=== PATIENT | female | born 1975 | race Caucasian/White ===

== ENCOUNTER 2016-12-23 23:05 | Emergency (ER) | payer BC, OTHER ==
[~2016-12-23 23:05] MED LIST: CIPR500T2 PO; ESTR1TAB PO; METR250 PO; OXYC1SOL5 PO; PRED20 PO; PROG100C PO; PROM25SU8 PO
[2016-12-23 23:07] VITALS: BP 166/99; TEMP 97.8; O2SAT 96
[2016-12-24 00:38] VITALS: BP 145/75; PULSE 111; RESP 20; TEMP 98; O2SAT 95
[2016-12-24] MEDS ORDERED: ESTR1TAB PO (01:16)
[2016-12-24] MEDS ORDERED: MULTTAB67 PO (01:16)
[2016-12-24] MEDS ORDERED: SODIUM CHLOR 0.9% 1000 ML INJ 1,000 ML IV SCH (01:17)
[2016-12-24] MEDS ORDERED: HYDROmorphone HCL PF 1 MG/ML VIAL IVS ONE (01:30)
[2016-12-24] MEDS ORDERED: SODIUM CHLOR 0.9% 250 ML INJ 250 ML IV ONE (01:30)
[2016-12-24] MEDS ORDERED: ONDANSETRON HCL 4 MG/2 ML VIAL IVP ONE (01:30)
[2016-12-24] MEDS ORDERED: SODIUM CHLORIDE 0.9% FLUSH 10 ML FLUSH IV FLUSH PRN (01:30)
[2016-12-24] MEDS ORDERED: IOHEXOL 350 MG/ML 10 ML VIAL (for RAD DIAG) IV ONE (01:58)
--- NOTE | 2016-12-24 02:18 | RADRPT ---
EXAM DATE/TIME: 12/24/2016 01:49 [facility] COMPARISON: CT ABDOMEN & PELVIS W CONTRAST, November 10, 2013, 1:20. INDICATIONS : Lower abdominal pain with nausea, vomiting and bloody diarrhea. IV CONTRAST: 90 cc Omnipaque 350 (iohexol) IV ORAL CONTRAST: No oral contrast ingested. RADIATION DOSE: 25.3 CTDIvol (mGy) MEDICAL HISTORY : Ulcerative colitis. Ovarian cancer. Mesenteric sclerosis. SURGICAL HISTORY : Appendectomy. Cholecystectomy.Hysterectomy. ENCOUNTER: Initial ACUITY: 2 days PAIN SCALE: 6/10 LOCATION: Bilateral lower quadrant TECHNIQUE: Volumetric scanning of the abdomen and pelvis was performed. Using automated exposure control and ad justment of the mA and/or kV according to patient size, radiation dose was kept as low as reasonably achievable to obtain optimal diagnostic quality images. FINDINGS: LOWER LUNGS: The visualized lower lungs are clear. LIVER: Homogeneous density without lesion. There is no dilation of the biliary tree previous cholecystectom y. SPLEEN: Normal size without lesion. PANCREAS: Within normal limits. KIDNEYS: Normal in size and shape. There is no mass, stone or hydronephrosis. ADRENAL GLANDS: Within normal limits. VASCULAR: There is no aortic aneurysm. BOWEL/MESENTERY: The stomach, small bowel, and colon demonstrate no acute abnormality. There is no free intraperitone al air or fluid. Anastomotic sutures within the small bowel. ABDOMINAL WALL: Within normal limits. RETROPERITONEUM: There is no lymphadenopathy. BLADDER: No wall thickening or mass. REPRODUCTIVE: Within normal limits. INGUINAL: There is no lymphadenopathy or hernia. MUSCULOSKELETAL: Within normal limits for patient age. CONCLUSION: 1. No acute inflammatory process. 2. Status post cholecystectomy. Everett Del Toro MD on December 24, 2016 at 2:13 Board Certified Radiologist. This report was verified electronically.
[2016-12-24 02:27] LABS: AUTOMATED NEUTROPHIL # 6.3 TH/MM3 (1.8-7.7); BASOPHIL # 0.1 TH/MM3 (0-0.2); BASOPHIL % 1.3 % (0.0-2.0); EOSINOPHIL # 0.3 TH/MM3 (0-0.4); EOSINOPHIL % 2.5 % (0.0-4.0); HEMATOCRIT 38.2 % (35.0-46.0); HEMO FLAGS DIFF FINAL; LYMPH % 32.5 % (9.0-44.0); LYMPHOCYTE # 3.7 TH/MM3 (1.0-4.8); MEAN CORPUSCULAR HEMOGLOBIN 30.2 PG (27.0-34.0); MEAN CORPUSCULAR HGB CONC 34.3 % (32.0-36.0); MONO % 7.9 % (0.0-8.0); NEUT % 55.8 % (16.0-70.0); PLATELET COUNT 302 TH/MM3 (150-450); RED BLOOD COUNT 4.35 MIL/MM3 (4.00-5.30); RED CELL DISTRIBUTION WIDTH 13.2 % (11.6-17.2); WHITE BLOOD COUNT 11.2 TH/MM3 (4.0-11.0)
[2016-12-24 02:43] LABS: ALKALINE PHOSPHATASE 90 U/L (45-117); ALT (GPT) 33 U/L (10-53); ANION GAP 11 MEQ/L (5-15); AST (GOT) 25 U/L (15-37); BICARBONATE 24.9 MEQ/L (21.0-32.0); BLOOD UREA NITROGEN 16 MG/DL (7-18); CHLORIDE 106 MEQ/L (98-107); GLOMERULAR FILTRATION RATE 104 ML/MIN (>89); SODIUM (NA) 142 MEQ/L (136-145); TOTAL BILIRUBIN ADULT 0.2 MG/DL (0.2-1.0)
[2016-12-24 02:44] LABS: POTASSIUM 3.7 MEQ/L (3.5-5.1)
[2016-12-24] MEDS ORDERED: HYDROmorphone HCL PF 1 MG/ML VIAL IV PUSH ONE ×2 (03:00→04:15)
[2016-12-24] MEDS ORDERED: PROM25TA5 PO (03:23)
[2016-12-24] MEDS ORDERED: HYDR-3533 PO (03:23)
--- NOTE | 2016-12-24 03:25 | PD ---
HPI Chief Complaint: Abdominal Pain Time Seen by Provider: 00:39 Travel History International Travel<30 days: No Contact w/Intl Traveler<30days: No Traveled to known affect area: No History of Present Illness HPI 41-year-old female arrives complaining of nausea vomiting and bloody stool. Duration about 2 days. She reports initially bright red blood with stool filling the toilet bowl. More recently she's noticed trace blood in the stool. She's had no fever. She has pain in the region of the left lower quadrant of the abdomen. Appetite has been decreased. No VB/VD. No Urinary complaint. PFSH Past Medical History Arthritis: No Asthma: No Autoimmune Disease: No Blood Disorders: No Anxiety: Yes Depression: Yes (SISTER AND NEPHEW KILLED BY [id number] PER PT) Heart Rhythm Problems: No Cancer: Yes (OVARIAN ) Cardiovascular Problems: No High Cholesterol: No Chemotherapy: Yes (2005) Chest Pain: No Congestive Heart Failure: No COPD: No Cerebrovascular Accident: No Diabetes: No Diminished Hearing: No Endocrine: No Gastrointestinal Disorders: Yes (ULCERATIVE COLITIS) GERD: No Glaucoma: No Genitourinary: No Headaches: Yes Hepatitis: No Hiatal Hernia: Yes Hypertension: No Immune Disorder: No Implanted Vascular Access Dvce: No Kidney Stones: No Medical other: Yes (Sclerosising Mesentritis) Musculoskeletal: Yes Neurologic: Yes (DDD) Psychiatric: Yes Reproductive: Yes Respiratory: No Immunizations Current: No Migraines: No Myocardial Infarction: No Radiation Therapy: Yes ([id number]) Renal Failure: No Seizures: No Sickle Cell Disease: No Sleep Apnea: No Thyroid Disease: No Ulcer: Yes PNEUMOCCOCAL Vaccine (Year): 3 ?: Not Menopausal: No : 4 Para: 0 Miscarriage: 3 : 0 Ovarian Cysts: Yes Past Surgical History Abdominal Surgery: Yes (PARTIAL BOWEL RESECTION 2006) AICD: No Appendectomy: Yes Arteriovenous Shunt: No Cardiac Surgery: No Cholecystectomy: Yes Ear Surgery: No Endocrine Surgery: No Eye Surgery: No Genitourinary Surgery: No Gynecologic Surgery: Yes (Ovarian Cancer 10 years ago. Radical Hysterectomy 9 years ago) Hysterectomy: Yes Insulin Pump: No Joint Replacement: No Neurologic Surgery: No Oral Surgery: No Pacemaker: No Thoracic Surgery: No Other Surgery: No Social History Alcohol Use: Yes Tobacco Use: No Substance Use: No Allergies-Medications (Allergen,Severity, Reaction): Coded Allergies: Penicillin (Verified Allergy, Severe, HIVES, 12/23/16) Sulfa (Verified Allergy, Severe, HIVES, 12/23/16) Toradol (Verified Allergy, Severe, HIVES, 12/23/16) Compazine (Verified Adverse Reaction, Severe, ANXIETY ATTACK, 12/23/16) Reported Meds & Prescriptions Reported Meds & Active Scripts Active Reported Multiple Vitamin 1 Tab 1 Tab PO DAILY Estradiol 1 Mg Tab 1 Mg PO DAILY Review of Systems Except as stated in HPI: all other systems reviewed are Neg General / Constitutional: No: Fever Gastrointestinal: Positive: Nausea, Vomiting, Diarrhea, Abdominal Pain Physical Exam Narrative GENERAL: 41-year-old female pleasant well-nourished well-developed RECTAL: No stool in the vault. No internal hemorrhoid burden or external hemorrhoids. SKIN: Focused skin assessment warm/dry. HEAD: Atraumatic. Normocephalic. EYES: Pupils equal and round. No scleral icterus. No injection or drainage. ENT: No nasal bleeding or discharge. Mucous membranes pink and moist. NECK: Trachea midline. No JVD. CARDIOVASCULAR: Regular rate and rhythm. No murmur appreciated. RESPIRATORY: No accessory muscle use. Clear to auscultation. Breath sounds equal bilaterally. GASTROINTESTINAL: Abdomen soft, non-tender, nondistended. Hepatic and splenic margins not palpable. MUSCULOSKELETAL: No obvious deformities. No clubbing. No cyanosis. No edema. NEUROLOGICAL: Awake and alert. No obvious cranial nerve deficits. Motor grossly within normal limits. Normal speech. PSYCHIATRIC: Appropriate mood and affect; insight and judgment normal. Data Data Last Documented VS Vital Signs Date Time Temp Pulse Resp B/P Pulse Ox O2 Delivery O2 Flow Rate FiO2 12/24/16 00:38 98.0 111 20 145/75 95 Room Air Vital signs reviewed Orders Complete Blood Count With Diff (12/24/16 01:17) Comprehensive Metabolic Panel (12/24/16 01:17) Lipase (12/24/16:17) Lactic Acid (12/24/16:17) Ct Abd/Pel W Iv Contrast(Rout) (12/24/16 01:17) Iv Access Insert/Monitor (12/24/16 01:17) Ecg Monitoring (12/24/16 01:17) Oximetry (12/24/16 01:17) Ondansetron Inj (Zofran Inj) (12/24/16 01:30) Sodium Chlor 0.9% 1000 Ml Inj (Ns 1000 M (12/24/16 01:17) Sodium Chloride 0.9% Flush (Ns Flush) (12/24/16 01:30) Hydromorphone Pf Inj (Dilaudid Pf Inj) (12/24/16 01:30) Type And Screen (12/24/16 01:17) Sodium Chlor 0.9% 250 Ml Inj (Ns 250 Ml (12/24/16 01:30) Iohexol 350 Inj (Omnipaque 350 Inj) (12/24/16 01:58) Hydromorphone Pf Inj (Dilaudid Pf Inj) (12/24/16 03:00) Labs Laboratory Tests Test 12/24/16 02:05 White Blood Count 11.2 TH/MM3 Red Blood Count 4.35 MIL/MM3 Hemoglobin 13.1 GM/DL Hematocrit 38.2 % Mean Corpuscular Volume 88.0 FL Mean Corpuscular Hemoglobin 30.2 PG Mean Corpuscular Hemoglobin 34.3 % Concent Red Cell Distribution Width 13.2 % Platelet Count 302 TH/MM3 Mean Platelet Volume 9.9 FL Neutrophils (%) (Auto) 55.8 % Lymphocytes (%) (Auto) 32.5 % Monocytes (%) (Auto) 7.9 % Eosinophils (%) (Auto) 2.5 % Basophils (%) (Auto) 1.3 % Neutrophils # (Auto) 6.3 TH/MM3 Lymphocytes # (Auto) 3.7 TH/MM3 Monocytes # (Auto) 0.9 TH/MM3 Eosinophils # (Auto) 0.3 TH/MM3 Basophils # (Auto) 0.1 TH/MM3 CBC Comment DIFF FINAL Differential Comment Sodium Level 142 MEQ/L Potassium Level 3.7 MEQ/L Chloride Level 106 MEQ/L Carbon Dioxide Level 24.9 MEQ/L Anion Gap 11 MEQ/L Blood Urea Nitrogen 16 MG/DL Creatinine 0.63 MG/DL Estimat Glomerular Filtration 104 ML/MIN Rate Random Glucose 92 MG/DL Lactic Acid Level 2.0 mmol/L Calcium Level 9.3 MG/DL Total Bilirubin 0.2 MG/DL Aspartate Amino Transf 25 U/L (AST/SGOT) Alanine Aminotransferase 33 U/L (ALT/SGPT) Alkaline Phosphatase 90 U/L Total Protein 7.5 GM/DL Albumin 3.7 GM/DL Lipase 272 U/L Blood Type B POSITIVE Antibody Screen NEGATIVE MDM Medical Decision Making Medical Screen Exam Complete: Yes Emergency Medical Condition: Yes Medical Record Reviewed: Yes Differential Diagnosis Constipation, Gastritis, Acute Cholecystitis, Biliary Colic, Pancreatitis, OBANDO , Hepatitis, Bowel Obstruction, Cystitis, Mesenteric Ischemia, AAA, Appendicitis , Renal Stone/Hydronephrosis, GERD, perforated viscous Narrative Course CBC & BMP Diagram 12/24/16 02:05 LFTs and lipase normal Last 24 hours Impressions Abdomen/Pelvis CT 12/24/16 0117 Signed Impressions: Service Date/Time: Saturday, December 24, 2016 01:49 - CONCLUSION: 1. No acute inflammatory process. 2. Status post cholecystectomy. Everett Del Toro MD Mild tachycardia observed here today. The patient's heart rate is been trended back over 5 years and the heart rate has been over 90 on most every visit here. The patient is resting comfortably and feels better, is alert and in no distress. The patients results and examination findings were discussed. The repeat examination is unremarkable and benign. The history, exam, diagnostic testing, and current condition do not suggest any significant pathology to warrant further testing, continued ED treatment, admission, or surgical evaluation at this point. The vital signs have been stable. The patient does not have uncontrollable pain, intractable vomiting, or other significant symptoms. The patient's condition is stable and appropriate for discharge. The patient will pursue further outpatient evaluation with a primary care physician or other designated or consulting physician as indicated in the discharge instructions. The patient expressed understanding and was agreeable with this plan. Diagnosis Primary Impression: Abdominal pain Qualified Code: R10.32 - Left lower quadrant pain Referrals: Lucia Esquivel MD call for appointment Gynecologic oncologist Additional Instructions: You have a choice when it comes to health care, and we are glad that you chose [facility]. Hopefully, we have met your expectations on today's visit. You are welcome to return to [facility] at any time, as we are committed to meeting the health care needs of our community. Med/Other Pt SpecificInfo: No Change to Meds Scripts Promethazine (Phenergan)25 Mg Tab25 Mg PO Q6H PRN (Nausea/Vomiting) #15 TAB Ref 0 Prov:Josue Hope MD 12/24/16 Hydrocodone-Acetaminophen (Lortab)5-325 Mg Tab1-2 Tab PO Q6H PRN (PAIN SCALE 6 TO 10) #12 TAB Ref 0 Prov:Josue Hope MD 12/24/16 Disposition: 01 DISCHARGE HOME Condition: Stable Josue Hope MD Dec 24, 2016 03:25
[2016-12-24 03:31] VITALS: RESP 18
== END 2016-12-24 05:15 | disposition home or self-care (01) ==
LOC: NEPC 23:05
DX: R10.32 Left lower quadrant pain (principal); R11.2 Nausea with vomiting, unspecified; K92.1 Melena; R00.0 Tachycardia, unspecified; Z85.43 Personal history of malignant neoplasm of ovary; Z87.19 Personal history of other diseases of the digestive system; Z87.39 Personal history of other diseases of the musculoskeletal system and connective tissue; Z86.69 Personal history of other diseases of the nervous system and sense organs; Z86.59 Personal history of other mental and behavioral disorders
CPT/HCPCS: 74177; 80053; 83605; 83690; 85025; 86850; 86900; 86901; 96361; 96374; 96375; 96376; 99285; J1170; J2405; J7030; Q9967

== ENCOUNTER 2017-01-25 00:37 | Emergency (ER) | payer BC ==
[~2017-01-25] VITALS: Ht 180.3 cm; Wt 122.7 kg
[~2017-01-25 00:37] MED LIST changes: -CIPR500T2 PO; +HYDR-3533 PO; -METR250 PO; +MULTTAB67 PO; -OXYC1SOL5 PO; -PRED20 PO; -PROG100C PO; -PROM25SU8 PO; +PROM25TA5 PO
[2017-01-25 00:43] VITALS: BP 154/107; PULSE 117; RESP 20; TEMP 97.6
[2017-01-25 01:30] VITALS: BP 185/72; PULSE 96
[2017-01-25] MEDS ORDERED: SODIUM CHLOR 0.9% 1000 ML INJ 1,000 ML IV SCH (02:00)
[2017-01-25] MEDS ORDERED: ONDANSETRON HCL 4 MG/2 ML VIAL IVP ONE ×2 (02:00→03:00)
[2017-01-25] MEDS ORDERED: SODIUM CHLORIDE 0.9% FLUSH 10 ML FLUSH IV FLUSH PRN (02:00)
--- NOTE | 2017-01-25 02:11 | PD ---
HPI Chief Complaint: Abdominal Pain Time Seen by Provider: 01:49 Travel History International Travel<30 days: No Contact w/Intl Traveler<30days: No Traveled to known affect area: No History of Present Illness HPI The patient is a 41-year-old female with a long history of recurrent abdominal pain. She complains of 2 days of nausea and vomiting and primarily urinary right lower quadrant abdominal pain. She is followed by search and rescue officer, Dr. Saez who practices at [facility]. 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 She is also followed by Dr. Gayle for rheumatology. She ran out of her Phenergan and is nauseated. She came in because of the pain. She was recently seen here and a CAT scan of the abdomen/pelvis was negative. She had the same symptoms at that time. She denies vomiting any blood. 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 She has had radiation treatment. She requests Dilaudid and Phenergan for pain and nausea. The patient also states that her father is on "the board". 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 PFSH Past Medical History Arthritis: No Asthma: No Autoimmune Disease: No Blood Disorders: No Anxiety: Yes Depression: Yes (SISTER AND NEPHEW KILLED BY [id number] PER PT) Heart Rhythm Problems: No Cancer: Yes (OVARIAN ) Cardiovascular Problems: No High Cholesterol: No Chemotherapy: Yes (2005) Chest Pain: No Congestive Heart Failure: No COPD: No Cerebrovascular Accident: No Diabetes: No Diminished Hearing: No Endocrine: No Gastrointestinal Disorders: Yes (ULCERATIVE COLITIS) GERD: No Glaucoma: No Genitourinary: No Headaches: Yes Hepatitis: No Hiatal Hernia: Yes Hypertension: No Immune Disorder: No Implanted Vascular Access Dvce: No Kidney Stones: No Musculoskeletal: Yes Neurologic: Yes (DDD) Psychiatric: Yes Reproductive: Yes Respiratory: No Immunizations Current: No Migraines: No Myocardial Infarction: No Radiation Therapy: Yes ([id number]) Renal Failure: No Seizures: No Sickle Cell Disease: No Sleep Apnea: No Thyroid Disease: No Ulcer: Yes PNEUMOCCOCAL Vaccine (Year): 3 ?: Not LMP: NO PERIODS Menopausal: No : 4 Para: 0 Miscarriage: 3 : 0 Ovarian Cysts: Yes Past Surgical History Abdominal Surgery: Yes (PARTIAL BOWEL RESECTION 2006) AICD: No Appendectomy: Yes Arteriovenous Shunt: No Cardiac Surgery: No Cholecystectomy: Yes Ear Surgery: No Endocrine Surgery: No Eye Surgery: No Genitourinary Surgery: No Gynecologic Surgery: Yes (Ovarian Cancer 10 years ago. Radical Hysterectomy 9 years ago) Hysterectomy: Yes Insulin Pump: No Joint Replacement: No Neurologic Surgery: No Oral Surgery: No Pacemaker: No Thoracic Surgery: No Other Surgery: No Social History Alcohol Use: Yes Tobacco Use: No Substance Use: No Allergies-Medications (Allergen,Severity, Reaction): Coded Allergies: Penicillin (Verified Allergy, Severe, HIVES, 01/25/17) Sulfa (Verified Allergy, Severe, HIVES, 01/25/17) Toradol (Verified Allergy, Severe, HIVES, 01/25/17) Compazine (Verified Adverse Reaction, Severe, ANXIETY ATTACK, 01/25/17) Reported Meds & Prescriptions Reported Meds & Active Scripts Active Phenergan (Promethazine HCl) 25 Mg Tab 25 Mg PO Q6H PRN Reported Multiple Vitamin 1 Tab 1 Tab PO DAILY Estradiol 1 Mg Tab 1 Mg PO DAILY Review of Systems Except as stated in HPI: all other systems reviewed are Neg Physical Exam Narrative GENERAL: The patient is alert, oriented 3 in moderate apparent distress through abdominal discomfort. Her vital signs show temperature 97.6, pulse 117 , respiratory rate of 20 and blood pressure 154/107. SKIN: Focused skin assessment warm/dry. HEAD: Atraumatic. Normocephalic. EYES: Pupils equal and round. No scleral icterus. No injection or drainage. ENT: No nasal bleeding or discharge. Mucous membranes pink and moist. NECK: Trachea midline. No JVD. CARDIOVASCULAR: Regular rate and rhythm. No murmur appreciated. RESPIRATORY: No accessory muscle use. Clear to auscultation. Breath sounds equal bilaterally. GASTROINTESTINAL: Abdomen soft, with tenderness to direct palpation in the right lower quadrant, nondistended. Hepatic and splenic margins not palpable. No guarding or rebound is present. MUSCULOSKELETAL: No obvious deformities. No clubbing. No cyanosis. No edema. NEUROLOGICAL: Awake and alert. No obvious cranial nerve deficits. Motor grossly within normal limits. Normal speech. PSYCHIATRIC: Appropriate mood and affect; insight and judgment normal. Data Data Last Documented VS Vital Signs Date Time Temp Pulse Resp B/P Pulse Ox O2 Delivery O2 Flow Rate FiO2 01/25/17 03:28 92 16 174/86 99 Room Air 01/25/17 00:43 97.6 Orders Complete Blood Count With Diff (01/25/17 02:00) Comprehensive Metabolic Panel (01/25/17 02:00) Lipase (01/25/17 02:00) Abdomen, Flat & Upright (01/25/17 ) Iv Access Insert/Monitor (01/25/17 02:00) Ecg Monitoring (01/25/17 02:00) Oximetry (01/25/17 02:00) Ondansetron Inj (Zofran Inj) (01/25/17 02:00) Sodium Chlor 0.9% 1000 Ml Inj (Ns 1000 M (01/25/17 02:00) Sodium Chloride 0.9% Flush (Ns Flush) (01/25/17 02:00) Ondansetron Inj (Zofran Inj) (01/25/17 03:00) Hydromorphone Pf Inj (Dilaudid Pf Inj) (01/25/17 03:00) Non-Formulary Drug (01/25/17 03:15) Labs Laboratory Tests Test 01/25/17 02:50 White Blood Count 11.3 TH/MM3 Red Blood Count 4.69 MIL/MM3 Hemoglobin 13.9 GM/DL Hematocrit 41.1 % Mean Corpuscular Volume 87.5 FL Mean Corpuscular Hemoglobin 29.6 PG Mean Corpuscular Hemoglobin 33.8 % Concent Red Cell Distribution Width 11.5 % Platelet Count 287 TH/MM3 Mean Platelet Volume 8.3 FL Neutrophils (%) (Auto) 63.4 % Lymphocytes (%) (Auto) 28.9 % Monocytes (%) (Auto) 5.5 % Eosinophils (%) (Auto) 1.3 % Basophils (%) (Auto) 0.9 % Neutrophils # (Auto) 7.2 TH/MM3 Lymphocytes # (Auto) 3.3 TH/MM3 Monocytes # (Auto) 0.6 TH/MM3 Eosinophils # (Auto) 0.1 TH/MM3 Basophils # (Auto) 0.1 TH/MM3 CBC Comment DIFF FINAL Differential Comment Sodium Level 144 MEQ/L Potassium Level 4.0 MEQ/L Chloride Level 109 MEQ/L Carbon Dioxide Level 21.9 MEQ/L Anion Gap 13 MEQ/L Blood Urea Nitrogen 16 MG/DL Creatinine 0.52 MG/DL Estimat Glomerular Filtration 129 ML/MIN Rate Random Glucose 128 MG/DL Calcium Level 8.9 MG/DL Total Bilirubin LESS THAN 0.1 MG/DL Aspartate Amino Transf 15 U/L (AST/SGOT) Alanine Aminotransferase 27 U/L (ALT/SGPT) Alkaline Phosphatase 107 U/L Total Protein 7.8 GM/DL Albumin 3.6 GM/DL Lipase 338 U/L MDM Medical Decision Making Medical Screen Exam Complete: Yes Emergency Medical Condition: Yes Medical Record Reviewed: Yes Interpretation(s) Flat and upright abdomen x-rays show benign-appearing abdomen. The complete metabolic profile is essentially normal and the lipase is normal. The CBC is normal except for a minimal elevation in white count of 11,300. Differential Diagnosis Sclerosing mesenteritis, bowel pain etiology undetermined, small bowel obstruction, electrolyte disorder, dehydration, renal insufficiency, anemia, delusional behavior Narrative Course The patient probably has sclerosing mesenteritis. This is only by history. She does exhibit some delusional behavior but is not a danger to herself. The patient has not been coming here frequently, her last visit here was in December 24 and she received Dilaudid at that time. Before then she was here in 2014. The patient has decreased pain and nausea and is able to go home at this time. Plan: The patient be given Phenergan for nausea and Ultram for pain. He is to follow-up with her search and rescue officer next week. Diagnosis Primary Impression: Sclerosing mesenteritis Med/Other Pt SpecificInfo: Prescription(s) given Scripts Promethazine (Phenergan)50 Mg Tab50 Mg PO Q6H PRN (NAUSEA OR VOMITING) #28 TAB Ref 0 Prov:Oscar Alexandre MD 01/25/17 Tramadol-Acetaminophen (Ultracet)37.5-325 mg Tab2 Tab PO Q4H PRN (PAIN) #28 TAB Ref 0 Prov:sOcar Alexandre MD 01/25/17 Disposition: 01 DISCHARGE HOME Condition: Stable Oscar Alexandre MD Jan 25, 2017 02:11
--- NOTE | 2017-01-25 02:57 | RADHPO ---
EXAM DATE/TIME: 01/25/2017 02:23 [facility] COMPARISON: CT ABDOMEN & PELVIS W CONTRAST, December 24, 2016, 1:49. INDICATIONS : Abdominal pain, nausea, vomiting, diarrhea for 48 hours MEDICAL HISTORY : Ulcerative colitis. Ovarian cancer. Mesenteric sclerosis. SURGICAL HISTORY : Appendectomy. Cholecystectomy.Hysterectomy. ENCOUNTER: Initial ACUITY: 2 days PAIN SCORE: 10/10 LOCATION: Entire abdomen FINDINGS: Air and normal amount of stool seen within nondistended large bowel. No small bowel distention. Small bowel anastomosis seen in the right lower quadrant. No free air. Right upper quadrant cholecystectomy clips noted. There is a dropped clip in the right paracolic gutt er, not new. CONCLUSION: Benign-appearing abdomen. Zbigniew Cabrera MD on January 25, 2017 at 2:53 Board Certified Radiologist. This report was verified electronically.
[2017-01-25] MEDS ORDERED: HYDROmorphone HCL PF 1 MG/ML VIAL IVS ONE (03:00)
[2017-01-25 03:03] LABS: AUTOMATED NEUTROPHIL # 7.2 TH/MM3 (1.8-7.7); BASOPHIL # 0.1 TH/MM3 (0-0.2); BASOPHIL % 0.9 % (0.0-2.0); EOSINOPHIL # 0.1 TH/MM3 (0-0.4); EOSINOPHIL % 1.3 % (0.0-4.0); HEMATOCRIT 41.1 % (35.0-46.0); HEMO FLAGS DIFF FINAL; LYMPH % 28.9 % (9.0-44.0); LYMPHOCYTE # 3.3 TH/MM3 (1.0-4.8); MEAN CELL VOLUME 87.5 FL (80.0-100.0); MEAN CORPUSCULAR HEMOGLOBIN 29.6 PG (27.0-34.0); MEAN CORPUSCULAR HGB CONC 33.8 % (32.0-36.0); MONO % 5.5 % (0.0-8.0); NEUT % 63.4 % (16.0-70.0); PLATELET COUNT 287 TH/MM3 (150-450); RED BLOOD COUNT 4.69 MIL/MM3 (4.00-5.30); RED CELL DISTRIBUTION WIDTH 11.5 % (11.6-17.2); WHITE BLOOD COUNT 11.3 TH/MM3 (4.0-11.0)
[2017-01-25 03:09] LABS: CHLORIDE 109 MEQ/L (98-107); SODIUM (NA) 144 MEQ/L (136-145)
[2017-01-25 03:13] LABS: ANION GAP 13 MEQ/L (5-15); BICARBONATE 21.9 MEQ/L (21.0-32.0); BLOOD UREA NITROGEN 16 MG/DL (7-18)
[2017-01-25] MEDS ORDERED: PHENERGAN 25 MG/ML SCH (03:15)
[2017-01-25 03:16] LABS: ALT (GPT) 27 U/L (10-53); AST (GOT) 15 U/L (15-37); GLOMERULAR FILTRATION RATE 129 ML/MIN (>89)
[2017-01-25 03:18] LABS: TOTAL BILIRUBIN ADULT LESS THAN 0.1 MG/DL (0.2-1.0)
[2017-01-25 03:19] LABS: ALKALINE PHOSPHATASE 107 U/L (45-117)
[2017-01-25 03:20] VITALS: BP 154/66; PULSE 89
[2017-01-25 03:28] VITALS: BP 174/86; PULSE 92; RESP 16; O2SAT 99
[2017-01-25] MEDS ORDERED: PROM50TA PO (03:48)
[2017-01-25] MEDS ORDERED: ULTR37.55 PO (03:48)
[2017-01-25 04:00] VITALS: BP 139/72; PULSE 85
[2017-01-25] MEDS ORDERED: traMADol HCL 50 MG TAB PO ONE (04:45)
[2017-01-25 04:48] VITALS: BP 109/58
== END 2017-01-25 04:55 | disposition home or self-care (01) ==
LOC: PHED 00:37
DX: K65.4 Sclerosing mesenteritis (principal)
CPT/HCPCS: 74020; 80053; 83690; 85025; 96361; 96372; 96374; 96375; 99284; J1170; J2405; J7030

== ENCOUNTER 2017-06-05 22:45 | Emergency (ER) | payer BC ==
[~2017-06-05] VITALS: Ht 175.3 cm; Wt 120.0 kg
[~2017-06-05 22:45] MED LIST changes: -HYDR-3533 PO; +PROM50TA PO; +ULTR37.55 PO
[2017-06-05 22:52] VITALS: BP 151/80; PULSE 130; RESP 20; TEMP 98.3; O2SAT 96
[2017-06-05 23:20] VITALS: BP 102/62; PULSE 118; RESP 17; O2SAT 98
--- NOTE | 2017-06-05 23:26 | PD ---
HPI Chief Complaint: left arm pain. Time Seen by Provider: 23:05 Travel History International Travel<30 days: No Contact w/Intl Traveler<30days: No History of Present Illness HPI Patient is a 41-year-old female with a history of sclerosing mesenteritis presents emergency department for evaluation of belly pain now radiating up underneath her left breast. Patient states his been going on for approximately 60 minutes. She initially thought that her belly pain was her normal belly pain when it became underneath her left breast she became concerned. Nonsmoker no family history of heart disease. No high blood pressure no high cholesterol. Patient does on her medication reconciliation have estradiol as a medication. Patient states she's not tried anything for pain prior to arrival. She does report a recent transatlantic fright from the [place]. Denies a history of blood clots. Appears fairly anxious on arrival and tells me that she is a common the right her and she is making jokes that she feels "just awesome and that's how she is disarming the situation". Chart review shows the patient was here in October by Dr. Mandujano and he noted some delusional behavior the patient stated that she had a family member who was "on the board" at the patient was "under cover for the [employer]". She was here at that time for chronic abdominal pain. PFSH Past Medical History Arthritis: No Asthma: No Autoimmune Disease: No Blood Disorders: No Anxiety: Yes Depression: Yes (SISTER AND NEPHEW KILLED BY [id number] PER PT) Heart Rhythm Problems: No Cancer: Yes (OVARIAN ) Cardiovascular Problems: No High Cholesterol: No Chemotherapy: Yes (2005) Chest Pain: No Congestive Heart Failure: No COPD: No Cerebrovascular Accident: No Diabetes: No Diminished Hearing: No Endocrine: No Gastrointestinal Disorders: Yes (ULCERATIVE COLITIS) GERD: No Glaucoma: No Genitourinary: No Headaches: Yes Hepatitis: No Hiatal Hernia: Yes Hypertension: No Immune Disorder: No Implanted Vascular Access Dvce: No Kidney Stones: No Musculoskeletal: Yes Neurologic: Yes (DDD) Psychiatric: Yes Reproductive: Yes Respiratory: No Immunizations Current: No Migraines: No Myocardial Infarction: No Radiation Therapy: Yes ([id number]) Renal Failure: No Seizures: No Sickle Cell Disease: No Sleep Apnea: No Thyroid Disease: No Ulcer: Yes PNEUMOCCOCAL Vaccine (Year): 3 Menopausal: No : 4 Para: 0 Miscarriage: 3 : 0 Ovarian Cysts: Yes Past Surgical History Abdominal Surgery: Yes (PARTIAL BOWEL RESECTION 2006) AICD: No Appendectomy: Yes Arteriovenous Shunt: No Cardiac Surgery: No Cholecystectomy: Yes Ear Surgery: No Endocrine Surgery: No Eye Surgery: No Genitourinary Surgery: No Gynecologic Surgery: Yes (Ovarian Cancer 10 years ago. Radical Hysterectomy 9 years ago) Hysterectomy: Yes Insulin Pump: No Joint Replacement: No Neurologic Surgery: No Oral Surgery: No Pacemaker: No Thoracic Surgery: No Other Surgery: No Social History Alcohol Use: Yes Tobacco Use: No Substance Use: No Allergies-Medications (Allergen,Severity, Reaction): Coded Allergies: Sulfa (Sulfonamide Antibiotics) (Verified Allergy, Severe, HIVES, 06/05/17) ketorolac (Verified Allergy, Severe, HIVES, 06/05/17) penicillin G (Verified Allergy, Severe, HIVES, 06/05/17) prochlorperazine (Verified Adverse Reaction, Severe, ANXIETY ATTACK, ) Reported Meds & Prescriptions Reported Meds & Active Scripts Active Phenergan (Promethazine HCl) 50 Mg Tab 50 Mg PO Q6H PRN Ultracet (Tramadol-Acetaminophen) 37.5-325 mg Tab 2 Tab PO Q4H PRN Phenergan (Promethazine HCl) 25 Mg Tab 25 Mg PO Q6H PRN Reported Multiple Vitamin 1 Tab 1 Tab PO DAILY Estradiol 1 Mg Tab 1 Mg PO DAILY Review of Systems Except as stated in HPI: all other systems reviewed are Neg Physical Exam Narrative GENERAL: Well-developed well-nourished no obvious distress, overweight. SKIN: Focused skin assessment warm/dry. HEAD: Atraumatic. Normocephalic. EYES: Pupils equal and round. No scleral icterus. No injection or drainage. ENT: No nasal bleeding or discharge. Mucous membranes pink and moist. NECK: Trachea midline. No JVD. CARDIOVASCULAR: Regular rhythm with tachycardia.. No murmurs gallops or rubs. 2+ bilateral equal pulses in all 4 extremities. Her chest pain is highly reproducible and worsens when she sits forward or moves her left arm. RESPIRATORY: No accessory muscle use. Clear to auscultation. Breath sounds equal bilaterally. GASTROINTESTINAL: Abdomen soft, non-tender, nondistended. Hepatic and splenic margins not palpable. MUSCULOSKELETAL: No obvious deformities. No clubbing. No cyanosis. No edema. NEUROLOGICAL: Awake and alert. No obvious cranial nerve deficits. Motor grossly within normal limits. Normal speech. PSYCHIATRIC: Somewhat bizarre behavior, insight and judgment appear normal. She certainly is not greatly disabled nor threat to herself or others this time. Data Data Last Documented VS Vital Signs Date Time Temp Pulse Resp B/P (MAP) Pulse Ox O2 Delivery O2 Flow Rate FiO2 06/06/17 01:04 06/06/17 00:38 114 18 96 Room Air 06/05/17 22:52 98.3 Orders Orders Electrocardiogram (06/05/17 23:24) Ckmb (Isoenzyme) Profile (06/05/17 23:24) Complete Blood Count With Diff (06/05/17 23:24) Comprehensive Metabolic Panel (06/05/17 23:24) D-Dimer (06/05/17 23:24) Magnesium (Mg) (06/05/17 23:24) Prothrombin Time / Inr (Pt) (06/05/17 23:24) Act Partial Throm Time (Ptt) (06/05/17 23:24) Troponin I (06/05/17 23:24) Chest, Single Ap (06/05/17 23:24) Ecg Monitoring (06/05/17 23:24) Iv Access Insert/Monitor (06/05/17 23:24) Oximetry (06/05/17 23:24) Oxygen Administration (06/05/17 23:24) Aspirin Chew (Aspirin Chew) (06/05/17 23:30) Sodium Chloride 0.9% Flush (Ns Flush) (06/05/17 23:30) Sodium Chlor 0.9% 1000 Ml Inj (Ns 1000 M (06/06/17 00:00) Ondansetron Inj (Zofran Inj) (06/06/17 00:30) Ondansetron Inj (Zofran Inj) (06/06/17 01:00) Diphenhydramine Inj (Benadryl Inj) (06/06/17 01:00) Labs Laboratory Tests Test 06/06/17 00:22 White Blood Count 13.0 TH/MM3 Red Blood Count 4.90 MIL/MM3 Hemoglobin 13.9 GM/DL Hematocrit 42.6 % Mean Corpuscular Volume 86.9 FL Mean Corpuscular Hemoglobin 28.3 PG Mean Corpuscular Hemoglobin Concent 32.5 % Red Cell Distribution Width 12.5 % Platelet Count 298 TH/MM3 Mean Platelet Volume 8.9 FL Neutrophils (%) (Auto) 61.4 % Lymphocytes (%) (Auto) 28.9 % Monocytes (%) (Auto) 6.2 % Eosinophils (%) (Auto) 2.4 % Basophils (%) (Auto) 1.1 % Neutrophils # (Auto) 8.0 TH/MM3 Lymphocytes # (Auto) 3.8 TH/MM3 Monocytes # (Auto) 0.8 TH/MM3 Eosinophils # (Auto) 0.3 TH/MM3 Basophils # (Auto) 0.1 TH/MM3 CBC Comment DIFF FINAL Differential Comment Prothrombin Time 9.6 SEC Prothromb Time International Ratio 0.9 RATIO Activated Partial Thromboplast Time 25.9 SEC D-Dimer Quantitative (PE/DVT) LESS THAN 0.19 MG/L FEU Blood Urea Nitrogen 20 MG/DL Creatinine 0.71 MG/DL Random Glucose 129 MG/DL Total Protein 7.6 GM/DL Albumin 3.5 GM/DL Calcium Level 8.4 MG/DL Magnesium Level 2.3 MG/DL Alkaline Phosphatase 109 U/L Aspartate Amino Transf (AST/SGOT) 16 U/L Alanine Aminotransferase (ALT/SGPT) 29 U/L Total Bilirubin 0.2 MG/DL Sodium Level 140 MEQ/L Potassium Level 3.4 MEQ/L Chloride Level 103 MEQ/L Carbon Dioxide Level 25.6 MEQ/L Anion Gap 11 MEQ/L Estimat Glomerular Filtration Rate 90 ML/MIN Total Creatine Kinase 63 U/L Troponin I LESS THAN 0.02 NG/ML MDM Medical Decision Making Medical Screen Exam Complete: Yes Emergency Medical Condition: Yes Interpretation(s) EKG shows sinus tachycardia rate of 111, no ST segment changes, intervals within normal limits. Normal axis normal R-wave progression. This normal EKG except for rate. Differential Diagnosis PE seems unlikely, ACS seems highly unlikely, chest wall pain, reflux, musculoskeletal strain. Narrative Course patient was roomed in the emergency department, her heart score puts her in a low risk category. She is tachycardic and does have some history of a transatlantic flight however not sure if this is delusion area or fact. Either way the patient needs to have a d-dimer for exclusion of PE. Given that her pain is only been going on for 60 minutes at think at least 2 troponin should be sent. At the end of my shift at midnight the patient was discussed with Dr. Sifuentes my impression of the patient and the workup thus been ordered. Aspirin and fluids being given he will reassess the patient follow-up workup and disposition the patient appropriately. Kapil Solano MD Jun 05, 2017 23:26
[2017-06-05] MEDS ORDERED: SODIUM CHLORIDE 0.9% FLUSH 10 ML FLUSH IVF PRN (23:30)
[2017-06-05] MEDS ORDERED: ASPIRIN 81 MG CHEW TAB PO ONE (23:30)
[2017-06-06] MEDS ORDERED: SODIUM CHLOR 0.9% 1000 ML INJ 1,000 ML IV ONE
--- NOTE | 2017-06-06 00:01 | RADRPT ---
EXAM DATE/TIME: 06/05/2017 23:40 [facility] COMPARISON: CHEST SINGLE AP, September 12, 2014, 5:51. INDICATIONS : Chest pain, tightness starting today MEDICAL HISTORY : None. SURGICAL HISTORY : None. ENCOUNTER: Initial ACUITY: 1 day PAIN SCORE: 5/10 LOCATION: Left upper chest FINDINGS: A single view of the chest demonstrates the lungs to be symmetrically aerated without evidence of mas s, infiltrate or effusion. The cardiomediastinal contours are unremarkable. Osseous structures are intact. CONCLUSION: 1. No acute cardiopulmonary disease. Mundo Boyd MD on June 05, 2017 at 23:59 Board Certified Radiologist. This report was verified electronically.
[2017-06-06] MEDS ORDERED: ONDANSETRON HCL 4 MG/2 ML VIAL IV PUSH ONE ×2 (00:30→01:00)
[2017-06-06 00:34] LABS: BASOPHIL # 0.1 TH/MM3 (0-0.2); BASOPHIL % 1.1 % (0.0-2.0); EOSINOPHIL # 0.3 TH/MM3 (0-0.4); EOSINOPHIL % 2.4 % (0.0-4.0); HEMATOCRIT 42.6 % (35.0-46.0); LYMPH % 28.9 % (9.0-44.0); LYMPHOCYTE # 3.8 TH/MM3 (1.0-4.8); MEAN CELL VOLUME 86.9 FL (80.0-100.0); MEAN CORPUSCULAR HEMOGLOBIN 28.3 PG (27.0-34.0); MEAN CORPUSCULAR HGB CONC 32.5 % (32.0-36.0); MONO % 6.2 % (0.0-8.0); NEUT % 61.4 % (16.0-70.0); PLATELET COUNT 298 TH/MM3 (150-450); RED CELL DISTRIBUTION WIDTH 12.5 % (11.6-17.2)
[2017-06-06 00:38] VITALS: BP 118/88; PULSE 114; RESP 18; O2SAT 96
[2017-06-06 00:38] LABS: HEMO FLAGS DIFF FINAL
[2017-06-06 00:41] LABS: CHLORIDE 103 MEQ/L (98-107); POTASSIUM 3.4 MEQ/L (3.5-5.1); SODIUM (NA) 140 MEQ/L (136-145)
[2017-06-06 00:45] LABS: ANION GAP 11 MEQ/L (5-15); BICARBONATE 25.6 MEQ/L (21.0-32.0); BLOOD UREA NITROGEN 20 MG/DL (7-18); MAGNESIUM 2.3 MG/DL (1.5-2.5)
[2017-06-06 00:48] LABS: ALT (GPT) 29 U/L (10-53); APTT (PATIENT) 25.9 SEC (24.3-30.1); AST (GOT) 16 U/L (15-37); GLOMERULAR FILTRATION RATE 90 ML/MIN (>89); INTERNATIONAL NORMALIZED RATIO 0.9 RATIO; PROTHROMBIN TIME - PATIENT 9.6 SEC (9.8-11.6)
[2017-06-06 00:50] LABS: TOTAL BILIRUBIN ADULT 0.2 MG/DL (0.2-1.0)
[2017-06-06 00:51] LABS: ALKALINE PHOSPHATASE 109 U/L (45-117)
[2017-06-06 00:54] LABS: CREATINE KINASE 63 U/L (26-192)
[2017-06-06] MEDS ORDERED: diphenhydrAMINE HCL 50 MG/ML VIAL IV PUSH ONE (01:00)
--- NOTE | 2017-06-06 01:00 | PD ---
Physical Exam Narrative Patient was seen by ED physician and signed out to me. Data Data Last Documented VS Vital Signs Date Time Temp Pulse Resp B/P (MAP) Pulse Ox O2 Delivery O2 Flow Rate FiO2 06/06/17 00:38 114 18 118/88 (98) 96 Room Air 06/05/17 22:52 98.3 Orders Orders Electrocardiogram (06/05/17 23:24) Ckmb (Isoenzyme) Profile (06/05/17 23:24) Complete Blood Count With Diff (06/05/17 23:24) Comprehensive Metabolic Panel (06/05/17 23:24) D-Dimer (06/05/17 23:24) Magnesium (Mg) (06/05/17 23:24) Prothrombin Time / Inr (Pt) (06/05/17 23:24) Act Partial Throm Time (Ptt) (06/05/17 23:24) Troponin I (06/05/17 23:24) Chest, Single Ap (06/05/17 23:24) Ecg Monitoring (06/05/17 23:24) Iv Access Insert/Monitor (06/05/17 23:24) Oximetry (06/05/17 23:24) Oxygen Administration (06/05/17 23:24) Aspirin Chew (Aspirin Chew) (06/05/17 23:30) Sodium Chloride 0.9% Flush (Ns Flush) (06/05/17 23:30) Sodium Chlor 0.9% 1000 Ml Inj (Ns 1000 M (06/06/17 00:00) Ondansetron Inj (Zofran Inj) (06/06/17 00:30) Ondansetron Inj (Zofran Inj) (06/06/17 01:00) Diphenhydramine Inj (Benadryl Inj) (06/06/17 01:00) Labs Laboratory Tests Test 06/06/17 00:22 White Blood Count 13.0 TH/MM3 Red Blood Count 4.90 MIL/MM3 Hemoglobin 13.9 GM/DL Hematocrit 42.6 % Mean Corpuscular Volume 86.9 FL Mean Corpuscular Hemoglobin 28.3 PG Mean Corpuscular Hemoglobin Concent 32.5 % Red Cell Distribution Width 12.5 % Platelet Count 298 TH/MM3 Mean Platelet Volume 8.9 FL Neutrophils (%) (Auto) 61.4 % Lymphocytes (%) (Auto) 28.9 % Monocytes (%) (Auto) 6.2 % Eosinophils (%) (Auto) 2.4 % Basophils (%) (Auto) 1.1 % Neutrophils # (Auto) 8.0 TH/MM3 Lymphocytes # (Auto) 3.8 TH/MM3 Monocytes # (Auto) 0.8 TH/MM3 Eosinophils # (Auto) 0.3 TH/MM3 Basophils # (Auto) 0.1 TH/MM3 CBC Comment DIFF FINAL Differential Comment Prothrombin Time 9.6 SEC Prothromb Time International Ratio 0.9 RATIO Activated Partial Thromboplast Time 25.9 SEC D-Dimer Quantitative (PE/DVT) LESS THAN 0.19 MG/L FEU Blood Urea Nitrogen 20 MG/DL Creatinine 0.71 MG/DL Random Glucose 129 MG/DL Total Protein 7.6 GM/DL Albumin 3.5 GM/DL Calcium Level 8.4 MG/DL Magnesium Level 2.3 MG/DL Alkaline Phosphatase 109 U/L Aspartate Amino Transf (AST/SGOT) 16 U/L Alanine Aminotransferase (ALT/SGPT) 29 U/L Total Bilirubin 0.2 MG/DL Sodium Level 140 MEQ/L Potassium Level 3.4 MEQ/L Chloride Level 103 MEQ/L Carbon Dioxide Level 25.6 MEQ/L Anion Gap 11 MEQ/L Estimat Glomerular Filtration Rate 90 ML/MIN Total Creatine Kinase 63 U/L Troponin I LESS THAN 0.02 NG/ML MDM Supervised Visit with TARI: No Interpretation(s) 12:57 AM. Chest x-ray shows no acute cardiopulmonary disease. CBC with WBC 13.0. Normal differential. CMP within normal limit. Cardiac enzymes are normal. D-dimer normal. Diagnosis Primary Impression: Atypical chest pain Patient Instructions: General Instructions Additional Instruction: Continue with all medications. Follow-up with personal physician. Return if worse. Return immediately if increasing chest pain shortness of breath. Med/Other Pt SpecificInfo: No Change to Meds Disposition: 01 DISCHARGE HOME Condition: Stable Andres Sifuentes MD Jun 06, 2017 01:00
--- NOTE | 2017-06-06 12:48 | EKG ---
Date Performed: 06/05/2017 Time Performed: 23:31:55 PTAGE: 41 years EKG: SINUS TACHYCARDIA ABNORMAL RHYTHM ECG PREVIOUS TRACING : 09/12/2014 05.25 DOCTOR: Amanuel Mcghee Interpretating Date/Time 06/06/2017 12:44:43
== END 2017-06-06 01:14 | disposition home or self-care (01) ==
LOC: PHED 22:45
DX: R07.89 Other chest pain (principal); R00.0 Tachycardia, unspecified
CPT/HCPCS: 71010; 80053; 82550; 83735; 84484; 85025; 85379; 85610; 85730; 93005; 96374; 96375; 99285; J1200; J2405; J7030

== ENCOUNTER 2017-11-29 00:22 | Emergency (ER) | payer BC ==
[~2017-11-29] VITALS: Ht 175.3 cm; Wt 117.1 kg
[2017-11-29 00:26] VITALS: BP 180/98; PULSE 123; RESP 20; TEMP 98.9; O2SAT 97
[2017-11-29] MEDS ORDERED: SODIUM CHLOR 0.9% 1000 ML INJ 1,000 ML IV SCH (00:50)
--- NOTE | 2017-11-29 00:58 | PD ---
HPI Chief Complaint: Abdominal Pain Time Seen by Provider: 00:50 Travel History International Travel<30 days: No Contact w/Intl Traveler<30days: No Traveled to known affect area: No History of Present Illness HPI 42-year-old female presents to the emergency department by private transportation for 3 days of nausea vomiting diarrhea and abdominal pain. Patient reports she has a condition of sclerosing mesenteritis. Patient states that she typically takes prednisone 5 mg daily and when she has an exacerbation increases her prednisone to 20 mg daily. Patient states she has done this but has had no improvement of symptoms. Patient denies fever chills. No report of hematemesis coffee-ground emesis melena hematochezia. Patient does admit to occasional alcohol use; admits to alcohol consumption tonight. Patient is status post cholecystectomy. Patient has not contacted her inspector advanced composite regarding her symptoms. Patient denies other concerns or complaints. PFSH Past Medical History Narrative Medical Anxiety depression chemotherapy ulcerative colitis DDD partial bowel resection hysterectomy cholecystectomy appendectomy; occasional alcohol use; nursing notes reviewed Arthritis: No Asthma: No Autoimmune Disease: No Blood Disorders: No Anxiety: Yes Depression: Yes (SISTER AND NEPHEW KILLED BY [id number] PER PT) Heart Rhythm Problems: No Cancer: Yes (OVARIAN ) Cardiovascular Problems: No High Cholesterol: No Chemotherapy: Yes (2005) Chest Pain: No Congestive Heart Failure: No COPD: No Cerebrovascular Accident: No Diabetes: No Diminished Hearing: No Endocrine: No Gastrointestinal Disorders: Yes (ULCERATIVE COLITIS) GERD: No Glaucoma: No Genitourinary: No Headaches: Yes Hepatitis: No Hiatal Hernia: Yes Hypertension: No Immune Disorder: No Implanted Vascular Access Dvce: No Kidney Stones: No Musculoskeletal: Yes Neurologic: Yes (DDD) Psychiatric: Yes Reproductive: Yes Respiratory: No Immunizations Current: No Migraines: No Myocardial Infarction: No Radiation Therapy: Yes ([id number]) Renal Failure: No Seizures: No Sickle Cell Disease: No Sleep Apnea: No Thyroid Disease: No Ulcer: Yes PNEUMOCCOCAL Vaccine (Year): 3 Menopausal: No : 4 Para: 0 Miscarriage: 3 : 0 Ovarian Cysts: Yes Past Surgical History Abdominal Surgery: Yes (PARTIAL BOWEL RESECTION 2006) AICD: No Appendectomy: Yes Arteriovenous Shunt: No Cardiac Surgery: No Cholecystectomy: Yes Ear Surgery: No Endocrine Surgery: No Eye Surgery: No Genitourinary Surgery: No Gynecologic Surgery: Yes (Ovarian Cancer 10 years ago. Radical Hysterectomy 9 years ago) Hysterectomy: Yes Insulin Pump: No Joint Replacement: No Neurologic Surgery: No Oral Surgery: No Pacemaker: No Thoracic Surgery: No Other Surgery: No Social History Alcohol Use: Yes (occassional wine) Tobacco Use: No Substance Use: No Allergies-Medications (Allergen,Severity, Reaction): Coded Allergies: Sulfa (Sulfonamide Antibiotics) (Verified Allergy, Severe, HIVES, 11/29/17) ketorolac (Verified Allergy, Severe, HIVES, 11/29/17) penicillin G (Verified Allergy, Severe, HIVES, 11/29/17) prochlorperazine (Verified Adverse Reaction, Severe, ANXIETY ATTACK, ) Reported Meds & Prescriptions Reported Meds & Active Scripts Active Zofran Odt (Ondansetron Odt) 4 Mg Tab 4 Mg SL Q6HR PRN Phenergan (Promethazine HCl) 50 Mg Tab 50 Mg PO Q6H PRN Ultracet (Tramadol-Acetaminophen) 37.5-325 mg Tab 2 Tab PO Q4H PRN Phenergan (Promethazine HCl) 25 Mg Tab 25 Mg PO Q6H PRN Reported Multiple Vitamin 1 Tab 1 Tab PO DAILY Estradiol 1 Mg Tab 1 Mg PO DAILY Review of Systems Except as stated in HPI: all other systems reviewed are Neg General / Constitutional: No: Fever, Chills HENT: No: Congestion Cardiovascular: No: Chest Pain or Discomfort Respiratory: No: Shortness of Breath Gastrointestinal: Positive: Nausea, Vomiting, Diarrhea, Abdominal Pain, No: Hematemesis, Hematochezia Genitourinary: No: Dysuria Musculoskeletal: No: Myalgias, Arthralgias Skin: No Rash Neurologic: No: Weakness Psychiatric: No: Anxiety Hematologic/Lymphatic: No: Lymph Node Enlargement Physical Exam Narrative GENERAL: Well-developed well-nourished obese female in no respiratory distress SKIN: Warm and dry. HEAD: Normocephalic. EYES: No scleral icterus. No injection or drainage. NECK: Supple, trachea midline. No JVD or lymphadenopathy. CARDIOVASCULAR: Regular rate and rhythm without murmurs, gallops, or rubs. RESPIRATORY: Breath sounds equal bilaterally. No accessory muscle use. GASTROINTESTINAL: Abdomen soft, diffusely tender to palpation, no guarding or rebound, nondistended. MUSCULOSKELETAL: No cyanosis, or edema. BACK: Nontender without obvious deformity. No CVA tenderness. Data Data Last Documented VS Vital Signs Date Time Temp Pulse Resp B/P (MAP) Pulse Ox O2 Delivery O2 Flow Rate FiO2 11/29/17 03:04 11/29/17 02:25 99 16 96 Room Air 11/29/17 00:26 98.9 Orders Orders Complete Blood Count With Diff (11/29/17 00:50) Comprehensive Metabolic Panel (11/29/17 00:50) Lipase (11/29/17 00:50) Urinalysis - C+S If Indicated (11/29/17 00:50) Ct Abd/Pel W Iv Contrast(Rout) (11/29/17 00:50) Iv Access Insert/Monitor (11/29/17 00:50) Ecg Monitoring (11/29/17 00:50) Oximetry (11/29/17 00:50) Ondansetron Inj (Zofran Inj) (11/29/17 01:00) Sodium Chlor 0.9% 1000 Ml Inj (Ns 1000 M (11/29/17 00:50) Sodium Chloride 0.9% Flush (Ns Flush) (11/29/17 01:00) Chest, Single Ap (11/29/17 00:50) Hydromorphone Pf Inj (Dilaudid Pf Inj) (11/29/17 01:00) Alcohol (Ethanol) (11/29/17 00:50) Magnesium (Mg) (11/29/17 00:50) Ondansetron Inj (Zofran Inj) (11/29/17 02:00) Iohexol 350 Inj (Omnipaque 350 Inj) (11/29/17 02:16) Ed Discharge Order (11/29/17 02:55) Labs Laboratory Tests Test 11/29/17 00:55 White Blood Count 8.3 TH/MM3 Red Blood Count 4.86 MIL/MM3 Hemoglobin 14.9 GM/DL Hematocrit 42.0 % Mean Corpuscular Volume 86.5 FL Mean Corpuscular Hemoglobin 30.7 PG Mean Corpuscular Hemoglobin Concent 35.5 % Red Cell Distribution Width 13.4 % Platelet Count 208 TH/MM3 Mean Platelet Volume 8.9 FL Neutrophils (%) (Auto) 54.5 % Lymphocytes (%) (Auto) 38.4 % Monocytes (%) (Auto) 5.6 % Eosinophils (%) (Auto) 1.1 % Basophils (%) (Auto) 0.4 % Neutrophils # (Auto) 4.5 TH/MM3 Lymphocytes # (Auto) 3.2 TH/MM3 Monocytes # (Auto) 0.5 TH/MM3 Eosinophils # (Auto) 0.1 TH/MM3 Basophils # (Auto) 0.0 TH/MM3 CBC Comment DIFF FINAL Differential Comment Urine Color YELLOW Urine Turbidity CLEAR Urine pH 5.0 Urine Specific [place] LESS/EQUAL 1.005 Urine Protein NEG mg/dL Urine Glucose (UA) NEG mg/dL Urine Ketones NEG mg/dL Urine Occult Blood SMALL Urine Nitrite NEG Urine Bilirubin NEG Urine Urobilinogen 0.2 MG/DL Urine Leukocyte Esterase TRACE Urine RBC 0-3 /hpf Urine WBC 3-5 /hpf Urine Squamous Epithelial Cells 0-5 /hpf Urine Bacteria RARE /hpf Microscopic Urinalysis Comment CULT NOT INDICATED Blood Urea Nitrogen 17 MG/DL Creatinine 0.56 MG/DL Random Glucose 115 MG/DL Total Protein 8.3 GM/DL Albumin 3.9 GM/DL Calcium Level 8.4 MG/DL Magnesium Level 2.4 MG/DL Alkaline Phosphatase 135 U/L Aspartate Amino Transf (AST/SGOT) 41 U/L Alanine Aminotransferase (ALT/SGPT) 83 U/L Total Bilirubin 0.1 MG/DL Sodium Level 140 MEQ/L Potassium Level 3.9 MEQ/L Chloride Level 107 MEQ/L Carbon Dioxide Level 21.4 MEQ/L Anion Gap 12 MEQ/L Estimat Glomerular Filtration Rate 118 ML/MIN Lipase 277 U/L Ethyl Alcohol Level 185 MG/DL [facility] Medical Decision Making Medical Screen Exam Complete: Yes Emergency Medical Condition: Yes Medical Record Reviewed: Yes Interpretation(s) alcohol: 185, elevated Last Impressions Chest X-Ray 11/29/1749 Signed Impressions: Service Date/Time: Wednesday, November 29, 2017 01:20 - CONCLUSION: The lungs are clear. Devon Jeff MD Abdomen/Pelvis CT 11/29/1749 Signed Impressions: Service Date/Time: Wednesday, November 29, 2017 02:10 - CONCLUSION: 1. No acute findings in the abdomen/pelvis. 2. Prominent common hepatic duct probably representing reservoir phenomenon from prior cholecystectomy. The appearance is unchanged from prior CT of November 2016. Devon Jeff MD CBC & BMP Diagram 11/29/17 00:55 Total Protein 8.3 H, Albumin 3.9, Calcium Level 8.4 L, Magnesium Level 2.4, Alkaline Phosphatase 135 H, Aspartate Amino Transf (AST/SGOT) 41 H, Alanine Aminotransferase (ALT/SGPT) 83 H, Total Bilirubin 0.1 L Vital Signs Date Time Temp Pulse Resp B/P (MAP) Pulse Ox O2 Delivery O2 Flow Rate FiO2 11/29/17 02:25 99 16 137/67 (90) 96 Room Air 11/29/17 00:26 98.9 123 20 180/98 (125) 97 Differential Diagnosis Abdominal pain, chronic pain syndrome, pancreatitis, choledocholithiasis, colitis, gastroenteritis, electrolytic disturbance, dehydration Narrative Course IV access obtained specimens collected and sent for resulting patient administered Zofran 4 mg IV Dilaudid 1 mg IV Patient comfortable after pain medication resting comfortably and given 1 L normal saline Lab values found to be grossly within normal range except mild elevation of transaminases CT abdomen pelvis ordered CT abdomen pelvis per reading radiologist reveals no acute process Patient is identified to have elevated alcohol level Patient is informed of lab results and imaging results and is stable for outpatient management. Diagnosis Primary Impression: Abdominal pain Qualified Codes: R10.84 - Generalized abdominal pain Additional Impressions: Alcohol ingestion Elevated transaminase level Referrals: Primary Care Physician call for appointment Irrigator [employer] Pipe call for appointment Patient Instructions: General Instructions, Narcotic given in the ED Additional Instructions: Follow clear liquid diet for next 12-24 hours advance as tolerated to bland/ brat diet and regular diet as tolerated Do not drink alcoholic beverages Take Zofran as prescribed as needed for nausea and/or vomiting Follow-up with your primary care provider and your inspector advanced composite call office in a.m. schedule follow-up appointment Return to the emergency department for any concerns or change in condition Med/Other Pt SpecificInfo: Prescription(s) given Scripts Ondansetron Odt (Zofran Odt) 4 Mg Tab 4 MG SL Q6HR Y for Nausea/Vomiting, #10 TAB 0 Refills Prov: Fe Allen MD 11/29/17 Disposition: 01 DISCHARGE HOME Condition: Stable Fe Allen MD Nov 29, 2017 00:58
[2017-11-29] MEDS ORDERED: ONDANSETRON HCL 4 MG/2 ML VIAL IVP ONE (01:00)
[2017-11-29] MEDS ORDERED: HYDROmorphone HCL PF 2 MG/ML VIAL IV PUSH ONE (01:00)
[2017-11-29] MEDS ORDERED: SODIUM CHLORIDE 0.9% FLUSH 10 ML FLUSH IV FLUSH PRN (01:00)
[2017-11-29 01:10] LABS: AUTOMATED NEUTROPHIL # 4.5 TH/MM3 (1.8-7.7); BASOPHIL % 0.4 % (0.0-2.0); EOSINOPHIL # 0.1 TH/MM3 (0-0.4); EOSINOPHIL % 1.1 % (0.0-4.0); HEMOGLOBIN 14.9 GM/DL (11.6-15.3); LYMPH % 38.4 % (9.0-44.0); LYMPHOCYTE # 3.2 TH/MM3 (1.0-4.8); MEAN CELL VOLUME 86.5 FL (80.0-100.0); MEAN CORPUSCULAR HEMOGLOBIN 30.7 PG (27.0-34.0); MEAN CORPUSCULAR HGB CONC 35.5 % (32.0-36.0); MEAN PLATELET VOLUME 8.9 FL (7.0-11.0); MONO % 5.6 % (0.0-8.0); MONOCYTE # 0.5 TH/MM3 (0-0.9); NEUT % 54.5 % (16.0-70.0); PLATELET COUNT 208 TH/MM3 (150-450); RED BLOOD COUNT 4.86 MIL/MM3 (4.00-5.30); RED CELL DISTRIBUTION WIDTH 13.4 % (11.6-17.2); WHITE BLOOD COUNT 8.3 TH/MM3 (4.0-11.0)
[2017-11-29 01:11] LABS: BILIRUBIN, URINE NEG (NEG); BLOOD, URINE SMALL (NEG); GLUCOSE,URINE NEG (NEG); KETONE, URINE NEG (NEG); NITRITE,URINE NEG (NEG); URINE COLOR YELLOW (YELLW/STRAW); URINE LEUKOCYTE ESTERASE TRACE (NEG)
[2017-11-29 01:17] LABS: CHLORIDE 107 MEQ/L (98-107); SODIUM (NA) 140 MEQ/L (136-145)
[2017-11-29 01:20] LABS: BACTERIA, URINE RARE /hpf; RBC, URINE 0-3 /hpf (0-3); SQUAMOUS EPITHELIAL CELL URINE 0-5 /hpf (0-5)
[2017-11-29 01:21] LABS: ALBUMIN 3.9 GM/DL (3.4-5.0); BICARBONATE 21.4 MEQ/L (21.0-32.0); BLOOD UREA NITROGEN 17 MG/DL (7-18); CALCIUM 8.4 MG/DL (8.5-10.1); GLUCOSE,RANDOM 115 MG/DL (74-106); MAGNESIUM 2.4 MG/DL (1.5-2.5)
[2017-11-29 01:24] LABS: ALT (GPT) 83 U/L (10-53); AST (GOT) 41 U/L (15-37); CREATININE 0.56 MG/DL (0.50-1.00); GLOMERULAR FILTRATION RATE 118 ML/MIN (>89)
[2017-11-29 01:26] LABS: TOTAL BILIRUBIN ADULT 0.1 MG/DL (0.2-1.0); TOTAL PROTEIN 8.3 GM/DL (6.4-8.2)
[2017-11-29 01:27] LABS: ALKALINE PHOSPHATASE 135 U/L (45-117)
[2017-11-29] MEDS ORDERED: ONDANSETRON HCL 4 MG/2 ML VIAL IV PUSH ONE (02:00)
--- NOTE | 2017-11-29 02:11 | RADRPT ---
EXAM DATE/TIME: 11/29/2017 01:20 [facility] COMPARISON: CHEST SINGLE AP, June 05, 2017, 23:40. INDICATIONS : Chest discomfort, upper abdominal pain for 2 days MEDICAL HISTORY : Ulcerative colitis. Ovarian cancer. Mesenteric sclerosis SURGICAL HISTORY : Appendectomy. Cholecystectomy.Hysterectomy ENCOUNTER: Initial ACUITY: 2 days PAIN SCORE: 0/10 LOCATION: Bilateral chest FINDINGS: A single view of the chest demonstrates the lungs to be symmetrically aerated without evidence of mas s, infiltrate or effusion. No evidence of pneumothorax. The cardiomediastinal contours are unremark able. Osseous structures are intact. CONCLUSION: The lungs are clear. Devon Jeff MD on November 29, 2017 at 2:10 Board Certified Radiologist. This report was verified electronically.
[2017-11-29] MEDS ORDERED: IOHEXOL 350 MG/ML 10 ML VIAL (for RAD DIAG) IVCONTRAST ONE (02:16)
[2017-11-29 02:25] VITALS: BP 137/67; PULSE 99; RESP 16; O2SAT 96
[2017-11-29] MEDS ORDERED: ZOFR4TAB3 SL (02:27)
--- NOTE | 2017-11-29 02:39 | RADRPT ---
EXAM DATE/TIME: 11/29/2017 02:10 [place] COMPARISON: CT ABDOMEN & PELVIS W CONTRAST, December 24, 2016, 1:49. INDICATIONS : Abdominal pain. IV CONTRAST: 94 cc Omnipaque 350 (iohexol) IV ORAL CONTRAST: No oral contrast ingested. RADIATION DOSE: 22.07 CTDIvol (mGy) ; Patient body habitus MEDICAL HISTORY : Inflammatory bowel disease. Ovarian cancer SURGICAL HISTORY : Appendectomy. Cholecystectomy.Colon resection.Radical hysterectomy ENCOUNTER: Initial ACUITY: 1 day PAIN SCALE: 6/10 LOCATION: abdomen TECHNIQUE: Volumetric scanning of the abdomen and pelvis was performed. Using automated exposure control and ad justment of the mA and/or kV according to patient size, radiation dose was kept as low as reasonably achievable to obtain optimal diagnostic quality images. DICOM format image data is available electro nically for review and comparison. FINDINGS: LOWER LUNGS: The visualized lower lungs are clear. LIVER: Homogeneous density without lesion. There is no dilation of the intrahepatic biliary tree. Cholecys tectomy. The common hepatic duct at the [place] is prominent, measuring 1.9 cm, unchanged in appearanc e from prior CT, probably reservoir phenomenon. The distal common bile duct measures 6 mm. SPLEEN: Normal size without lesion. PANCREAS: Within normal limits. KIDNEYS: Normal in size and shape. There is no mass, stone or hydronephrosis. ADRENAL GLANDS: Within normal limits. VASCULAR: There is no aortic aneurysm. BOWEL/MESENTERY: No dilated loops of small or large bowel. The anastomosis suture in the anterior mid abdomen, simila r in configuration to prior CT. No evidence of free fluid. ABDOMINAL WALL: Within normal limits. RETROPERITONEUM: There is no lymphadenopathy. BLADDER: No wall thickening or mass. REPRODUCTIVE: Within normal limits. INGUINAL: There is no lymphadenopathy or hernia. MUSCULOSKELETAL: Within normal limits for patient age. CONCLUSION: 1. No acute findings in the abdomen/pelvis. 2. Prominent common hepatic duct probably representing reservoir phenomenon from prior cholecystectom y. The appearance is unchanged from prior CT of November 2016. Devon Jeff MD on November 29, 2017 at 2:34 Board Certified Radiologist. This report was verified electronically.
== END 2017-11-29 03:13 | disposition home or self-care (01) ==
LOC: PHED 00:22
DX: R10.84 Generalized abdominal pain (principal); R74.0 Nonspecific elevation of levels of transaminase and lactic acid dehydrogenase [LDH]; Z79.899 Other long term (current) drug therapy
CPT/HCPCS: 71045; 74177; 80053; 80307; 81001; 83690; 83735; 85025; 96361; 96374; 96375; 96376; 99285; J1170; J2405; J7030; Q9967